=== PATIENT | female | born 1995 | race Caucasian/White ===

== ENCOUNTER 2021-02-10 16:43 | Inpatient (IN) ==
[2021-02-10 17:23] LABS: Basophils % 0.5 % (0.0-0.8); Eosinophils % 0.5 % (0.00-10.9); Hematocrit 33.2 VOL% (35.7-47.0); Hemoglobin 11.4 GM/DL (12.0-16.0); Immature Granulocytes % 0.9 %; Immature Granulocytes Absolute 0.06 #; Lymphocytes # 1.9 10*3/uL (1.4-4.0); Lymphocytes % 30.2 % (21.3-54.2); Mean Corpuscular HGB Conc 34.3 GM/DL (32-36); Mean Corpuscular Volume 89.5 FL (87-102); Mean Platelet Volume 10.9 FL (9.6-12.0); Monocytes % 6.9 % (1.7-12.7); Platelet Count 209 T/CUMM (130-400); Red Blood Count 3.71 MC/CUMM (3.8-5.5); Red Cell Distribution Width 12.8 % (9.3-17.3); White Blood Count 6.4 T/CUMM (4-12)
[2021-02-10 17:31] LABS: Bacteria,Urine Occasional /HPF (Few); Bilirubin,Urine Negative (Negative); Blood, Urine Negative (Negative); Glucose,Urine (UA) Negative (Negative); Ketones,Urine Negative (Negative); Mucus,Urine Occasional /LPF (Occasional); Nitrite,Urine Negative (Negative); Protein,Urine >=500 MG/DL; RBC,Urine 1 /HPF (0-4); Squamous Epithelial Cell,Urine Few /HPF (0-10); Urine Appearance Slightly Hazy (Clear); Urine Color Yellow (Yellow); Urine Specific Gravity 1.016 (1.001-1.035); Urine Urobilinogen < 2.0 EU/DL (0.2-1.0)
[2021-02-10 17:37] LABS: INR 0.9; PT Patient Result 10.3 SECS (10.5-12.0); Partial Thromboplastin Time 28.5 SECS (23.9-33.8)
[2021-02-10 17:43] LABS: Alanine Aminotransferase 21 U/L (13-56); Albumin 2.3 G/DL (3.4-5.0); Alkaline Phosphatase 191 U/L (45-117); Aspartate Amino Transferase 29 U/L (0-37); Bilirubin,Direct < 0.050 MG/DL (0.0-0.20); Blood Urea Nitrogen 14 MG/DL (7-18); Calcium 8.5 MG/DL (8.5-10.1); Carbon Dioxide 23 MMOL/L (21-32); Estimated Glom Filtration Rate 121 ML/MIN; Glucose 71 MG/DL (74-106); Osmolality,Calculated 268.1 MOS/KG (273-304); Potassium 3.9 MMOL/L (3.5-5.1); Sodium 135 MMOL/L (136-145); Total Protein 6.3 G/DL (6.4-8.2); Uric Acid 6.3 MG/DL (2.6-6.0)
[2021-02-10] MEDS: LABETALOL 100 MG TABLET PO SCH (18:00)
[2021-02-10 18:14] LABS: Lymphocytes 22 % (20-55); Segmented Neutrophils 78 % (50-85); Total Cells Counted 100
[2021-02-10 18:15] LABS: Platelet Estimate Normal
[2021-02-10 18:49] LABS: Protein/Creatinine Ratio,Urine 1.5 RATIO
[2021-02-10] MEDS ORDERED: BUTORPHANOL 2 MG/ML VIAL IV PRN (23:43)
[2021-02-10] MEDS ORDERED: ONDANSETRON 4 MG/2 ML VIAL IV PRN (23:43)
[2021-02-10] MEDS ORDERED: LACTATED RINGERS 1,000 ML IV ONE (23:43)
[2021-02-11] MEDS: LABETALOL 100 MG TABLET PO SCH ×4 (00:34→23:54)
[2021-02-11] MEDS: LACTATED RINGERS 1,000 ML IV SCH ×4 (07:55→23:24)
[2021-02-11] MEDS ORDERED: OXYTOCIN/LR 20 UNIT/1,000 ML BAG IV SCH (11:00)
[2021-02-11] MEDS ORDERED: NALOXONE 0.4 MG/ML VIAL IV PRN (12:54)
[2021-02-11] MEDS ORDERED: CITRIC ACID/SODIUM CITRATE 30 ML UDCUP PO ONE (12:54)
[2021-02-11] MEDS ORDERED: PROMETHAZINE 25 MG/1 ML VIAL IM PRN (12:54)
[2021-02-11] MEDS ORDERED: ePHEDrine 50 MG/ML VIAL IV PRN (12:54)
[2021-02-11] MEDS ORDERED: hydrOXYzine HCL 25 MG/1 ML VIAL IM PRN (12:54)
[2021-02-11] MEDS ORDERED: FAMOTIDINE 20 MG/2 ML VIAL IV ONE ×2 (12:54→13:02)
[2021-02-11] MEDS ORDERED: diphenhydrAMINE 50 MG/1 ML VIAL IV PRN (12:54)
[2021-02-11] MEDS: fentaNYL 2 MCG/ROPIV 0.2% EPID 100 ML EPIDURAL SCH ×2 (13:44→20:53)
[2021-02-11 15:58] LABS: Bilirubin,Urine Negative (Negative); Blood, Urine Large mg/dL (Negative); Glucose,Urine (UA) Negative (Negative); Ketones,Urine Negative (Negative); Mucus,Urine Occasional /LPF (Occasional); Nitrite,Urine Negative (Negative); Protein,Urine >=500 MG/DL; RBC,Urine 217 /HPF (0-4); Squamous Epithelial Cell,Urine Occasional /HPF (0-10); Urine Appearance CLEAR (Clear); Urine Color Yellow (Yellow); Urine Specific Gravity 1.016 (1.001-1.035); Urine Urobilinogen < 2.0 EU/DL (0.2-1.0)
[2021-02-11] MEDS ORDERED: SODIUM CHLORIDE 0.9% 0 ML IV ONE (20:14)
[2021-02-11] MEDS ORDERED: miSOPROStoL 200 MCG TABLET ONE (20:14)
[2021-02-11] MEDS ORDERED: CARBOPROST TROMETHAMINE 250 MCG/ML AMP IM ONE (20:14)
[2021-02-11] MEDS ORDERED: LIDOCAINE 1% 50 ML VIAL ONE (20:14)
[2021-02-11] MEDS ORDERED: METHYLERGONOVINE 0.2 MG/1 ML AMP ONE (20:14)
[2021-02-11] MEDS ORDERED: TRANEXAMIC ACID 1,000 MG/10 ML VIAL ONE (20:14)
[2021-02-11] MEDS ORDERED: MEPERIDINE 50 MG/1 ML VIAL ONE (20:56)
[2021-02-11 22:51] LABS: Cord Venous Blood HCO3 21.3 MMOL/L; Cord Venous Blood PCO2 42.1 MMHG
[2021-02-11] MEDS ORDERED: ACETAMINOPHEN 325 MG TABLET PO PRN (22:53)
[2021-02-11] MEDS ORDERED: LANOLIN 50% CREAM 0.3 OZ TUBE TOP PRN (22:53)
[2021-02-11] MEDS ORDERED: HYDROCORTISONE 2.5% RECTAL CREAM 30 GM TUBE TOP PRN (22:53)
[2021-02-11] MEDS ORDERED: BENZOCAINE 20%/MENTHOL 0.5% SPRAY 56 GM CAN TOP PRN (22:53)
[2021-02-11] MEDS ORDERED: WITCH HAZEL PADS 100/JAR TOP PRN (22:53)
[2021-02-11] MEDS ORDERED: ONDANSETRON 4 MG/2 ML VIAL IV PRN (22:53)
[2021-02-11] MEDS ORDERED: OXYTOCIN/LR 20 UNIT/1,000 ML BAG IV ONE (22:53)
[2021-02-11] MEDS ORDERED: BISACODYL 10 MG SUPP RECTAL PRN (22:53)
[2021-02-11] MEDS ORDERED: MEASLES/MUMPS/RUBELLA VACCINE 0.5 ML VIAL SUBCUT ONE (22:53)
[2021-02-11] MEDS ORDERED: RHO(D) IMMUNE GLOBULIN 300 MCG SYRINGE IM ONE (22:53)
[2021-02-11] MEDS ORDERED: oxyCODONE/ACETAMINOPHEN 5-325 MG TABLET PO PRN ×2 (22:53)
[2021-02-11] MEDS ORDERED: DIPH/TET/ACEL PERT BOOSTER VACCINE 0.5 ML VIAL IM ONE (22:53)
[2021-02-12] MEDS: IBUPROFEN 800 MG TABLET PO PRN ×4 (00:35→21:06)
[2021-02-12 04:34] LABS: Basophils % 0.4 % (0.0-0.8); Hematocrit 29.1 VOL% (35.7-47.0); Hemoglobin 9.7 GM/DL (12.0-16.0); Immature Granulocytes % 0.8 %; Immature Granulocytes Absolute 0.09 #; Lymphocytes # 1.4 10*3/uL (1.4-4.0); Lymphocytes % 12.8 % (21.3-54.2); Mean Corpuscular HGB Conc 33.3 GM/DL (32-36); Mean Corpuscular Volume 90.9 FL (87-102); Mean Platelet Volume 11.7 FL (9.6-12.0); Monocytes % 6.2 % (1.7-12.7); Neutrophils % 79.8 % (38.7-73.9); Platelet Count 146 T/CUMM (130-400); Red Cell Distribution Width 12.8 % (9.3-17.3)
[2021-02-12] MEDS: LABETALOL 200 MG TABLET PO SCH ×3 (08:00→23:19)
[2021-02-12] MEDS: DOCUSATE SODIUM 100 MG CAPSULE PO SCH ×2 (08:27→21:06)
[2021-02-13] MEDS: LABETALOL 200 MG TABLET PO SCH (08:47)
[2021-02-13] MEDS: DOCUSATE SODIUM 100 MG CAPSULE PO SCH (08:47)
[2021-02-13 09:54] VITALS: BP 152/83
== END 2021-02-13 15:10 | disposition home or self-care (01) | DRG 807 ==
LOC: N.LDOUT 16:43 → N.LD 16:46 → N.OB 02-12 13:30
PROVIDERS: ADMIT Specialist; ATTEND Specialist